=== PATIENT | female | born 1980 | race Caucasian/White ===

== ENCOUNTER 2017-01-25 18:02 | Emergency (ER) | payer OTHER ==
[~2017-01-25] VITALS: Ht 154.9 cm; Wt 113.0 kg
[~2017-01-25 18:02] MED LIST: ABILIFY10 MG PO; AMBIEN10 M1 PO; BENTYL10 MG PO; CIPRO250 MG PO; CIPRO500 MG PO; CLINDAMYCIN HC150 MG PO; GABAPENTIN400 MG PO; IBUPROFEN600 MG PO; INDOCIN50 MG PO; IRON325 M1 PO; MELOXICAM15 MG PO; OXYCODONE HCL15 MG PO; PROMETHAZINE HC25 M1 PO; RISPERADOL PO; RITALIN20 MG PO; ROXICODONE5 MG PO; SEROQUEL12.5 MG PO; TRAMADOL HCL50 MG PO; TRAZODONE HCL50 MG PO; XANAX0.25 MG PO; XANAX2 MG PO; YAZ1 TABLET PO; ZOFRAN4 MG PO
[2017-01-25 19:14] LABS: CHLORIDE 104 mEq/L (99-109); POTASSIUM 4.5 mEq/L (3.7-5.4); SODIUM 140 mEq/L (136-147)
[2017-01-25 19:16] LABS: ADD MIUA? YES; BILIRUBIN NEGATIVE; BLOOD NEGATIVE; COLOR YELLOW ((YELLOW)); GLUCOSE (STRIP) NEGATIVE; KETONES 20; LEUKOCYTES SMALL; NITRITE NEGATIVE; PROTEIN (STRIP) 100; SPECIFIC GRAVITY 1.028 (1.000-1.030); UROBILINOGEN 0.2 MG/DL (0.2-1.0)
[2017-01-25 19:17] LABS: GLUCOSE 102 mg/dL (70-99)
[2017-01-25 19:18] LABS: ANION GAP 15 MEQ/L (2-14)
[2017-01-25 19:19] LABS: TOTAL BILIRUBIN 0.3 mg/dL (0.0-1.0)
[2017-01-25 19:20] LABS: ALKALINE PHOSPHATASE 96 IU/L (3-129); GFR ESTIMATE (CALCULATED) > 59 mL/min/
[2017-01-25 19:21] LABS: UREA NITROGEN (BUN) 10 mg/dL (9-23)
[2017-01-25 19:29] LABS: MCH 19.3 PG (29.0-34.0); MCHC 28.9 G/DL (30.0-36.0); MEAN PLAT.VOLUME 9.4 uM^3 (9.5-12.4); PLATELET COUNT 593 K/uL (156-360); RBC DIS.WIDTH-CV 20.7 % (11.8-14.6); RBC DIS.WIDTH-SD 47.8 % (39-53); RED BLOOD COUNT 5.22 M/uL (3.80-5.20)
[2017-01-25 19:31] LABS: QUANTITATIVE HCG < 4.0 MIU/ML
[2017-01-25 20:31] LABS: CASTS NONE SEEN /LPF; EPITHELIAL CELLS 4+ /HPF; MUCUS NONE SEEN /LPF
[2017-01-25 20:33] LABS: AMORPHOUS URATES CRYSTALS 3+; BACTERIA 1+ /HPF; CRYSTALS PRESENT; RED BLOOD CELLS NONE SEEN /HPF (0-5); UCUL ADDED? NO; WHITE BLOOD CELLS RARE /HPF (0-5)
[2017-01-25] MEDS ORDERED: ZOFRAN ODT4 MG PO (21:10)
[2017-01-25 21:23] VITALS: BP 145/94
== END 2017-01-25 21:25 | disposition home or self-care (01) ==
LOC: EME 18:02
DX: R11.0 Nausea (principal); Z88.0 Allergy status to penicillin; Z88.6 Allergy status to analgesic agent; Z87.891 Personal history of nicotine dependence
CPT/HCPCS: 80053; 81003; 84702; 85027; 99281; 99284; J1885; J2405; J7030

== ENCOUNTER 2017-12-29 21:21 | Emergency (ER) | payer OTHER ==
[~2017-12-29] VITALS: Ht 154.9 cm; Wt 113.7 kg
[~2017-12-29 21:21] MED LIST changes: +ZOFRAN ODT4 MG PO
[2017-12-29] MEDS ORDERED: COMPAZINE10 MG PO (22:28)
[2017-12-29 22:39] LABS: CHLORIDE 105 mEq/L (99-109); HEMATOCRIT 32.9 % (36.0-46.0); HEMOGLOBIN 8.9 G/DL (11.9-15.5); MCH 18.4 PG (29.0-34.0); MCHC 27.1 G/DL (30.0-36.0); MCV 68.1 FL (83-99); NRBC (%) 0.2 /100 WBC (0-0); PLATELET COUNT 450 K/uL (156-360); POTASSIUM 4.3 mEq/L (3.7-5.4); RBC DIS.WIDTH-CV 26.5 % (11.8-14.6); RBC DIS.WIDTH-SD 51.8 % (39-53); RED BLOOD COUNT 4.83 M/uL (3.80-5.20); SODIUM 140 mEq/L (136-147); WHITE BLOOD COUNT 12.3 K/uL (4.1-10.2)
[2017-12-29 22:41] LABS: GLUCOSE 79 mg/dL (70-99)
[2017-12-29 22:45] LABS: CREATININE 0.8 mg/dL (0.6-1.3); GFR ESTIMATE (CALCULATED) > 59 mL/min/; UREA NITROGEN (BUN) 13 mg/dL (9-23)
[2017-12-29 22:54] LABS: TROP-I INTERPRETATION NEGATIVE; TROPONIN-I < 0.01 ng/mL (0.0-0.30)
[2017-12-30 00:33] VITALS: BP 111/62
== END 2017-12-30 00:38 | disposition home or self-care (01) ==
LOC: EME 21:21
DX: G43.909 Migraine, unspecified, not intractable, without status migrainosus (principal); G62.9 Polyneuropathy, unspecified; R07.89 Other chest pain; G89.29 Other chronic pain; M54.9 Dorsalgia, unspecified; F41.9 Anxiety disorder, unspecified; F32.9 Major depressive disorder, single episode, unspecified; F31.9 Bipolar disorder, unspecified; Z87.891 Personal history of nicotine dependence; Z90.49 Acquired absence of other specified parts of digestive tract; Z88.0 Allergy status to penicillin; Z88.6 Allergy status to analgesic agent; Z88.8 Allergy status to other drugs, medicaments and biological substances
CPT/HCPCS: 71046; 80048; 84484; 85027; 93005; 99281; 99284; J0780